=== PATIENT | male | born 1940 | race Caucasian/White ===

== ENCOUNTER 2023-04-07 08:09 | Emergency (ER) | payer MEDICARE, SELFPAY ==
--- NOTE | ~2023-04-07 | XR_ITS ---
EXAMINATION: XR CHEST XR LEFT SHOULDER CLINICAL INFORMATION: Scapular pain. COMPARISON: None. TECHNIQUE: PA and lateral views of the chest were obtained. AP, Grashey and transscapular Y views of the left shoulder were obtained. FINDINGS: Chest: The lungs are hyperexpanded. Focal retrocardiac opacity best seen on the lateral view. While this may represent projectional overlap, one cannot exclude the possibility of an underlying lesion. No pleural effusion. Cardiac silhouette is within normal limits. Left shoulder: Acromioclavicular and glenohumeral joint spaces are maintained. No displaced fracture or dislocation. No abnormal soft tissue calcifications. XR/XR chest 2V IMPRESSION: Possible 3.5 cm retrocardiac opacity on the lateral view. Chest CT may be performed for further characterization. Hyperinflation. No acute abnormality of the left shoulder.
--- NOTE | ~2023-04-07 | CT_ITS ---
EXAMINATION: CT PELVIS WITHOUT CONTRAST CLINICAL INFORMATION: Pain and clicking COMPARISON: Radiograph from the same day TECHNIQUE: Helical scanning was performed with submillimeter collimation through the left shoulder without intravenous contrast. Sagittal and coronal multiplanar 2-D reconstructions were obtained. This CT examination was performed using dose optimization techniques as appropriate, variously including the following: *Automated exposure control *Adjustment of mA and/or kV according to patient size (this includes techniques or standardized protocols for targeted exams where dose is matched to indication/reason for exam; i.e. extremities or head) *Use of iterative reconstruction technique DLP: 222.1 mGy-cm FINDINGS: There is no evidence of fractures or subluxations in the left shoulder. Both sides demonstrate utilized and there are mild degenerative changes with narrowing of the glenohumeral joint. Acromioclavicular joint is unremarkable. There are no abnormal calcifications in left shoulder. There are no subchondral cyst formations or osseous fragments in the soft tissues. CT/CT shoulder LT wo IV con IMPRESSION: 1. Mild degenerative changes seen glenohumeral joint and mild osteopenia but no evidence of fractures or subluxations seen.
--- NOTE | ~2023-04-07 | CT_ITS ---
EXAMINATION: CT CHEST WITHOUT CONTRAST CLINICAL INFORMATION: Prior abnormal imaging. COMPARISON: Chest radiographs 04/07/2023 TECHNIQUE: Multidetector volumetric CT imaging of the chest was done. Axial MIP volume rendering provided. Sagittal and coronal reformatted images were obtained. This CT examination was performed using dose optimization techniques as appropriate, variously including the following: *Automated exposure control *Adjustment of mA and/or kV according to patient size (this includes techniques or standardized protocols for targeted exams where dose is matched to indication/reason for exam; i.e. extremities or head) *Use of iterative reconstruction technique DLP: 222 mGy-cm FINDINGS: LUNGS: 4 mm fissural nodule right upper lobe on image 307 of series 12. 7 mm fissural nodule right lower lobe on image 327 of series 12. 4 mm subpleural left lower lobe nodule on image 351 of series 12. 4 mm right middle lobe nodule on image 356 of series 12. 5 mm right middle lobe subpleural nodule on image 393 series 12. No focal consolidation. Central airways are patent. MEDIASTINUM: No bulky axillary, hilar or mediastinal lymphadenopathy. Great vessels are of normal caliber. Heart size is normal. No pericardial effusion. CORONARY ARTERY CALCIFICATION: Moderate. PLEURA: There is no pleural effusion. No pleural mass or thickening. UPPER ABDOMEN: Thickening of the left adrenal gland. OSSEOUS STRUCTURES: No destructive bone lesions. Enlarged bridging osteophytes at T11-T12 most likely correspond with the abnormality seen on the lateral chest radiograph. CT/CT chest wo IV con IMPRESSION: Bilateral pulmonary nodules measuring up to 7 mm. No prior studies available for comparison. Follow-up chest CT in 3-6 months is advised.
--- NOTE | ~2023-04-07 | XR_ITS ---
EXAMINATION: XR CHEST XR LEFT SHOULDER CLINICAL INFORMATION: Scapular pain. COMPARISON: None. TECHNIQUE: PA and lateral views of the chest were obtained. AP, Grashey and transscapular Y views of the left shoulder were obtained. FINDINGS: Chest: The lungs are hyperexpanded. Focal retrocardiac opacity best seen on the lateral view. While this may represent projectional overlap, one cannot exclude the possibility of an underlying lesion. No pleural effusion. Cardiac silhouette is within normal limits. Left shoulder: Acromioclavicular and glenohumeral joint spaces are maintained. No displaced fracture or dislocation. No abnormal soft tissue calcifications. XR/XR shoulder LT min 2V IMPRESSION: Possible 3.5 cm retrocardiac opacity on the lateral view. Chest CT may be performed for further characterization. Hyperinflation. No acute abnormality of the left shoulder.
[2023-04-07 08:20] VITALS: BP 156/87; PULSE 64; RESP 12; TEMP 36.8; O2SAT 98
[2023-04-07 08:26] VITALS: BP 155/92; BP 174/88; PULSE 62; PULSE 65; RESP 10; TEMP 36.8; O2SAT 100; O2SAT 99; BMI 21.6
--- NOTE | 2023-04-07 08:48 | PC.NURSE ---
pt reports that he lifted an object from top shelf in his storage unit and felt something pull in shoulder and has been having 7/10 shoulder and upper back pain since. he says that he went swimming yesterday and the pain got worse. no cp/headache/dizziness/sob. pt's is at his bedside and validates his complaint.
--- NOTE | 2023-04-07 08:49 | ECG_ITS ---
Test Reason : BACK PAIN Blood Pressure : / mmHG Vent. Rate : 056 BPM Atrial Rate : 056 BPM P-R Int : 166 ms QRS Dur : 108 ms QT Int : 428 ms P-R-T Axes : 079 124 040 degrees QTc Int : 413 ms Sinus bradycardia with Premature atrial complexes Possible Left atrial enlargement Right axis deviation Pulmonary disease pattern Incomplete right bundle branch block Abnormal ECG No previous ECGs available Referred By: Iwona Blankenship Electronically Signed By:ROSELYN ALONZO MD
--- NOTE | 2023-04-07 09:00 | ED.GENADULT ---
HPI - General Adult General Chief complaint: General Medical Stated complaint: L UPPER BACK PAIN W/TINGLING FINGERS PER EMS Time Seen by Provider: 04/07/23 08:10 Source: patient and family () Mode of arrival: ambulatory History of Present Illness HPI narrative: 83-year-old male presents with left scapular pain to include left shoulder pain with associated clicking that started after patient lifted an approximate 20-30 lb tool box off of the shelf over his head and denies any popping or pain at the time of the event but as per he had pain throughout the night in 1 is unable to sleep on his left side and has been taking Tylenol ibuprofen since that time. Patient went swimming on Friday, he endorses that he does the crawl stroke and that he has had worsening pain does not increase with deep inspiration but does affect his ability to move the left shoulder. Related Data Previous Rx's Medication Instructions Recorded cyclobenzaprine 5 mg tablet 5 mg PO BEDTIME PRN muscle spasm 04/07/23 #4 tabs ketorolac 10 mg tablet 10 mg PO Q6H PRN pain 5 days #20 04/07/23 tabs Allergies Allergy/AdvReac Type Severity Reaction Status Date / Time Penicillins AdvReac Itching Verified 04/07/23 08:41 Sulfa (Sulfonamide AdvReac Unknown Verified 04/07/23 08:42 Antibiotics) Review of Systems Review of Systems: Pertinent positives and negatives as stated in HPI [facility] Past Medical History Source: nursing notes reviewed Social History Social History Advance Directives: No Physical Exam ED Vital Signs: Vital Signs - 24 hr 04/07/23 08:20 04/07/23 08:26 04/07/23 10:10 Temperature 98.3 F 98.3 F Pulse Rate 64 62 64 Respiratory Rate 12 10 L 14 Blood Pressure 156/87 H 155/92 H 136/90 H Pulse Oximetry 98 99 100 Oxygen Delivery Method Room Air Room Air Room Air BMI result Body Mass Index 21.6 VITAL SIGNS: Reviewed. GENERAL: Well developed, well nourished, in no acute distress. HEAD: Normocephalic/atraumatic EYES: PERRLA, EOMI EARS: Ext canals without abnormality NOSE: Nares patent bilateral OROPHARYNX: no oral lesions noted, posterior pharynx clear NECK: Supple, no adenopathy, no midline cervical spine tenderness or step-offs. LUNGS: Normal breath sounds. No adventitious sounds or accessory muscle use. SpO2<99> CARDIOVASCULAR: Regular rate and rhythm without noted murmurs ABDOMEN: Soft, non-tender, non-distended with bowel sounds. BACK: No midline vertebral tenderness or palpations, palpation around the entire border of the left scapula without tenderness to palpation, on observation left scapula does appear to be elevated in comparison to the right, manipulation of the left scapula does not insight pain and there is no overlying ecchymosis/erythema/induration. MUSCULOSKELETAL: No tenderness, deformities, or effusions noted on gross inspection. EXTREMITIES: No cyanosis, clubbing or edema. LEFT SHOULDER: No obvious deformity, no erythema or induration, neurovascularly intact distal, provocative testing significant for obvious clicking when returning to physiologic position after provocative testing SKIN: Inspection of the skin reveals no rashes, ulcerations, jaundice, pallor, or petechiae. NEUROLOGIC: Alert and oriented x 4. Strength and sensation to light touch were grossly intact x 4. Medications Administered Discontinued Medications Generic Name Dose Route Start Last Admin Trade Name Freq PRN Reason Stop Dose Admin Acetaminophen 975 mg 04/07/23 09:49 04/07/23 09:59 Acetaminophen 325 Mg Tablet PO 04/07/23 09:50 975 mg ONCE ONE Administration Cyclobenzaprine HCl 5 mg 04/07/23 09:49 04/07/23 10:00 Cyclobenzaprine Hcl 5 Mg Tablet PO 04/07/23 09:50 5 mg ONCE ONE Administration Ketorolac Tromethamine 15 mg 04/07/23 09:49 04/07/23 09:59 Ketorolac Tromethamine 15 Mg/Ml Vial IM 04/07/23 09:50 15 mg ONCE ONE Administration Medical Decision Making Medical Decision Making MDM Narrative: 83-year-old male with history and clinical presentation most suggestive of muscle strain/spasm and the possibility of rotator cuff injury or labral tear injury very low clinical suspicion for fracture or dislocation. Patient given combination analgesics and muscle relaxant. I reviewed all investigations an EKG is negative for evidence of STEMI, chest x-ray negative for infiltrate or acute bony abnormalities but they do identify a retrocardiac opacity that they recommend further evaluation with CT of the chest, x-ray of the shoulder negative for evidence of fracture or dislocation. CT of the chest and shoulder without mention of any opacity in the retrocardiac region. There are bilateral pulmonary nodules measuring up to 7 mm in the recommendation is for follow-up CT scan in 3-6 months. Otherwise no acute osseous finding in the left shoulder. On re-evaluation patient is doing much better after the medications that he is received in he will be discharged with remaining course as well as being given a referral to follow-up with orthopedics. Differential Diagnosis Differential Diagnoses: The differential diagnosis associated with the presentation includes Please see the discussion above Admission/Observation Consideration of admission/observation: Escalation of care including admission/observation considered Please see the discussion above Independent Interpretation I performed an independent interpretation of an: EKG Interpretation: Sinus bradycardia with PACs, HR -56, no STEMI, IA/QRS/QTC are within normal limits. Discharge Plan Discharge Clinical Impression: Muscle strain, Muscle spasm, Left shoulder pain, Pulmonary nodule Patient Disposition: Home, Self-Care Instructions: Muscle Strain (ED), Muscle Spasm (ED), Shoulder Pain (ED) Additional Instructions: 1. Tylenol 1000 mg, orally, every 6 hours as needed for pain control. Do not exceed 4000 mg within 24 hours. 2. Lidocaine patch, apply to area of maximal tenderness as directed on the outside packaging. 3. You have been given a prescription for ketorolac (Toradol ) and should stop taking ibuprofen / naproxen/Motrin, this medication is okay to take with Tylenol and you should use it as prescribed. Drink plenty of water with this medication. 4. You have also been prescribed a medication for your muscle spasm. 5. Follow-up with your primary care doctor as scheduled. You have been given a referral to follow-up with orthopedics but may be required to provide an additional referral from your primary care provider. CT scan of the chest demonstrated the following findings, please share these with your primary care doctor. Bilateral pulmonary nodules measuring up to 7 mm.Follow-up chest CT in 3-6 months is advised. Do not lift heavy objects, no swimming. Prescriptions: New ketorolac 10 mg tablet 10 mg PO Q6H PRN (Reason: pain) 5 Days Qty: 20 0RF Rx Instructions: Patient received Toradol in the emergency room cyclobenzaprine 5 mg tablet 5 mg PO BEDTIME PRN (Reason: muscle spasm) Qty: 4 0RF Referrals: Chaz Jarrett DO [Primary Care Provider] -
[2023-04-07] MEDS: Acetaminophen 325 MG TABLET 975 MG PO (09:59)
[2023-04-07] MEDS: Ketorolac Tromethamine 15 MG/ML VIAL IM (09:59)
[2023-04-07] MEDS: Cyclobenzaprine HCl 5 MG TABLET PO (10:00)
[2023-04-07 10:10] VITALS: BP 136/90; PULSE 64; RESP 14; O2SAT 100
--- NOTE | 2023-04-07 10:42 | PC.NURSE ---
meds given as documented, vss. pt's is at his bedside
[2023-04-07 13:41] VITALS: BP 136/80; PULSE 60
--- NOTE | 2023-04-07 13:55 | PC.NURSE ---
pt cleared for discharge, discharge instructions reviewed with pt and at his bedside. denies pain, vss.
== END 2023-04-07 13:57 | disposition home or self-care (01) ==
PROVIDERS: Emergency Provider Student in an Organized Health Care Education/Training Program; PCP Family Medicine
DX: M54.6 Pain in thoracic spine (principal); M25.512 Pain in left shoulder; R51.9 Headache, unspecified; M54.50 Low back pain, unspecified; R00.1 Bradycardia, unspecified; M79.10 Myalgia, unspecified site; R91.1 Solitary pulmonary nodule; Z79.899 Other long term (current) drug therapy
CPT/HCPCS: 71046; 71250; 73030; 73200; 93005; 96372; 99284; J1885